=== PATIENT | female | born 1995 | race Caucasian/White ===

== ENCOUNTER → 2016-10-12 | Outpatient (CLI) | payer OTHER ==
[2016-10-12 20:26] LABS: FREE T4 1.24 NG/DL (0.76-1.46)
== END ==
LOC: M WUC 16:36
PROVIDERS: ATTEND Physician Assistant
DX: E06.3 Autoimmune thyroiditis (principal)

== ENCOUNTER → 2016-10-17 | Outpatient (CLI) | payer OTHER ==
--- NOTE | 2016-10-19 09:44 | REP ---
FOCUSED RIGHT BREAST SONOGRAPHY: HISTORY: Right breast lump at 1-o'clock position. FINDINGS: The right breast scanned from the 1-o'clock position to the 4-o'clock position. The referring provider reports a palpable lump at 1-o'clock position. The patient reports a palpable lump at 3-o'clock position. In any event, fairly homogeneous echotexture is seen in the breast parenchyma in this region. No cyst, mass or architectural distortion is seen. IMPRESSION: BIRADS category 1 negative focused right breast sonography. This should not dissuade one from biopsy of a palpable lump depending on its clinical characteristics. Clinical follow-up is advised. Signed by Lazaro Jeffers MD 10/19/2016 08:56 P
== END ==
LOC: M RAD 11:50
PROVIDERS: ATTEND Family Medicine
DX: N63 Unspecified lump in breast (principal)

== ENCOUNTER → 2020-01-09 | Outpatient (CLI) | payer BC | LOC: M LABSMTC 11:10 → EEVIPCON 11:10 | PROVIDERS: ATTEND Family Medicine | DX: Z03.818 Encounter for observation for suspected exposure to other biological agents ruled out (principal); Z11.59 Encounter for screening for other viral diseases | CPT/HCPCS: C9803; U0003 ==